=== PATIENT | female | born 2000 | race Two or more races ===

== ENCOUNTER 2023-04-22 11:18 | Emergency (ER) | payer MEDICAID ==
[~2023-04-22] VITALS: Ht 157.5 cm; Wt 80.0 kg
[2023-04-22 12:04] LABS: Urine Bacteria FEW /hpf (None Seen); Urine Blood Negative /uL (Negative); Urine Clarity Clear (Clear); Urine Color Colorless (Yellow); Urine Protein, UAD Negative (Negative); Urine Specific Gravity 1.013 (1.001-1.035); Urine Urobilinogen Normal (Negative); Urine WBC 186 /hpf (0 - 5); Urine pH 5.5 (5.0-8.0)
[2023-04-22 13:35] VITALS: BP 118/68; PULSE 90; RESP 16; TEMP 97.3; O2SAT 99
[2023-04-22] MEDS ORDERED: MAGNESIUM CITRATE SOLUTION 300 ML BTL PO ONE (15:00)
== END 2023-04-22 15:32 | disposition home or self-care (01) ==
LOC: ER 11:18
DX: K59.00 Constipation, unspecified (principal)
CPT/HCPCS: 74018; 81001; 81025

== ENCOUNTER 2024-04-25 11:59 | Emergency (ER) | payer MEDICAID ==
[~2024-04-25] VITALS: Ht 157.5 cm; Wt 66.3 kg
[2024-04-25] MEDS: cefTRIAXone SOD 1,000 MG VL IM ONE (14:12)
[2024-04-25] MEDS ORDERED: IBU600T PO (14:19)
[2024-04-25] MEDS ORDERED: AZIT-185 PO (14:19)
[2024-04-25 14:27] VITALS: BP 92/62; PULSE 79; RESP 18; TEMP 99; O2SAT 97
== END 2024-04-25 14:40 | disposition home or self-care (01) ==
LOC: ER 11:59
DX: J03.90 Acute tonsillitis, unspecified (principal); K59.00 Constipation, unspecified; M79.18 Myalgia, other site; Z79.899 Other long term (current) drug therapy
CPT/HCPCS: 96372; 99283; J0696

== ENCOUNTER 2024-07-20 16:19 | Emergency (ER) | payer MEDICAID ==
[~2024-07-20] VITALS: Ht 157.5 cm; Wt 52.8 kg
[~2024-07-20 16:19] MED LIST: AZIT-185 PO; IBU600T PO
[2024-07-20] MEDS ORDERED: METH4PAK PO (16:35)
[2024-07-20] MEDS ORDERED: AUG875T PO (16:35)
--- NOTE | 2024-07-20 16:36 | ED.PDOC ---
History of Present Illness HPI Comments 24-year-old female complaining of sinus congestion pressure x1 week. States over the last 2-3 days symptoms have gotten worse. Reports a history of lupus. 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 States she took three days of prednisone 10 mg with little relief. Patient reports continued frontal sinus headache. Nothing makes it better, nothing makes it worse. Chief Complaint: Flu like Time Seen by MD: 16:26 Primary Care Provider: JESSICA Valdovinos Notes: Nurses Notes Allergies: Coded Allergies: NO KNOWN ALLERGIES (Unverified , 04/22/23) Home Meds Active Scripts Ibuprofen Micronized (MOTRIN TABLET) 600 Mg Tb, 600 MG PO TID PRN, #30 TAB *Black box warning-NSAIDS can increase risk of AR & hypertension, GI irritation, ulceration, bleed, perferation. Do not use post cardiac surgery. Use short duration/lowest effective dose. Prov:AUGUSTIN QUIÑONEZ 04/25/24 Azithromycin (ZITHROMAX TABLET) 250 Mg Tb, 250 MG PO DAILY, #6 TAB Prov:AUGUSTIN QUIÑONEZ 04/25/24 Information Source: Patient Past Medical History PAST MEDICAL HISTORY: Denies Surgical History: Denies all surgeries MEDIA RELATIONS MANAGER History: No Pertinent MEDIA RELATIONS MANAGER History Family History Family History: Reviewed,noncontributory to illness Social History Smoker: Non-Smoker Alcohol: Denies ETOH Use Drugs: Denies Drug Use Lives In: Home Constitutional: denies: chills, diaphoresis, fatigue, fever, malaise, sweats, weakness, others EENTM: denies: blurred vision, double vision, ear bleeding, ear discharge, ear drainage, ear pain, ear ringing, eye pain, eye redness, hearing loss, mouth pain, mouth swelling, nasal discharge, nose bleeding, nose congestion, nose pain, photophobia, tearing, throat pain, throat swelling, voice changes, others Respiratory: denies: cough, hemoptysis, orthopnea, SOB at rest, shortness of breath, SOB with excertion, stridor, wheezing, others Cardiovascular: denies: chest pain, dizzy spells, diaphoresis, Dyspnea on exertion, edema, irregular heart beat, left arm pain, lightheadedness, palpitations, PND, syncope, others Gastrointestinal: denies: abdomen distended, abdominal pain, blood streaked bowels, constipated, diarrhea, dysphagia, difficulty swallowing, hematemesis, melena, nausea, poor appetite, poor fluid intake, rectal bleeding, rectal pain, vomiting, others Genitourinary: denies: abnormal vagina bleeding, burning, dyspareunia, dysuria, flank pain, frequency, hematuria, incontinence, pain, , vagina discharge, urgency, others Neurological: denies: dizziness, fainting, headache, left sided numbness, left sided weakness, numbness, paresthesia, pre-existing deficit, right sided numbness, right sided weakness, seizure, speech problems, tingling, tremors, weakness, others Musculoskeletal: denies: back pain, gout, joint pain, joint swelling, muscle pain, muscle stiffness, neck pain, others Integumetry: denies: bruises, change in color, change in hair/nails, dryness, laceration, lesions, lumps, rash, wounds, others Allergic/Immunocompromised: denies: Difficulty Healing, Frequent Infections, Hives, Itching, others Hematologic/Lymphatic: denies: anemia, blood clots, easy bleeding, easy bruising, swollen glands, others Endocrine: denies: excessive hunger, excessive sweating, excessive thirst, excessive urination, flushing, intolerance to cold, intolerance to heat, unexplained weight gain, unexplained weight loss, others Psychiatric: denies: anxiety, bipolar disorder, depression, hopeless, panic disorder, schizophrenia, sleepless, suicidal, others Physical Exam General Appearance: No Apparent Distress, Normal HEENT: Normal ENT Inspection, Pharynx Normal, Sinuses (Frontal and maxillary sinus tenderness), TMs Normal Neck: Full Range of Motion, Non-Tender, Normal, Normal Inspection Respiratory: Chest Non-Tender, Lungs Clear, No Accessory Muscle Use, No Respiratory Distress, Normal Breath Sounds Cardiovascular: No Edema, No JVD, No Murmur, No Gallop, Normal Peripheral Pulses, Regular Rate/Rhythm Breast Exam: Deferred Gastrointestinal: No Organomegaly, Non Tender, No Pulsatile Mass, Normal Bowel Sounds, Soft Genitalia: Deferred Pelvic: Deferred Rectal: Deferred Extremities: No calf tenderness, Normal capillary refill, Normal inspection, Normal range of motion, Non-tender, No pedal edema Musculoskeletal : Apperance: Normal Neurologic: Alert, form builder helper II-XII nml as Tested, No Motor Deficits, Normal Affect, Normal Mood, No Sensory Deficits Cerebellar Function: Normal Reflexes: Normal Skin: Dry, Normal Color, Warm Lymphatic: No Adenopathy Was a procedure done? Was a procedure done?: No Differential Dx Considerations may include: URI, influenza, COVID, strep throat, pharyngitis, pneumonia X-Ray, Labs, Meds, VS Comment Imaging: X-rays and CT scans were reviewed and interpreted by this provider, imaging shows no fractures and no pathological disease. Pending radiology review. Laboratory: Labs reviewed and interpreted by this provider. No significant abnormalities noted. Patient has prior medical visits reviewed. Med reconciliation performed Vital signs reviewed Time of 1ST Reevaluation: 16:35 Reevaluation 1ST: Improved Patient Education/Counseling: Diagnosis, Treatment, Need For Follow Up (Follow up with the PCP in the next 2-4 days. Follow up in the emergency department if symptoms worsen.) Family Education/Counseling: Diagnosis, No Family Present Departure 1 Departure Time of Disposition: 16:34 Impression: Primary Impression: Sinusitis Qualified Codes: J01.10 - Acute frontal sinusitis, unspecified Disposition: 01 HOME / SELF CARE / HOMELESS Condition: Fair e-Prescriptions Methylprednisolone (Medrol Dosepak) 4 Mg Efraín 4 MG PO UD, #21 TAB UAD Prov: UMER OLEARY 07/20/24 Amoxicillin & Pot Clavulanate (AUGMENTIN TABLET) 875 Mg Tb 875 MG PO BID for 7 Days, #14 TAB Prov: UMER OLEARY 07/20/24 Discharged With: Self Critical Care Note Critical Care Time?: No Stability Stability form required: No Heart Score Heart Score: Heart Score Response (Comments) Value History N/A 0 EKG N/A 0 Age N/A 0 Risk Factors N/A 0 Troponin N/A 0 Total 0 UMER OLEARY Jul 20, 2024 16:36
[2024-07-20 16:47] VITALS: BP 101/59; PULSE 104; RESP 17; TEMP 98.3; O2SAT 98
== END 2024-07-20 16:54 | disposition home or self-care (01) ==
LOC: ER 16:21
DX: J32.9 Chronic sinusitis, unspecified (principal); Z79.2 Long term (current) use of antibiotics; Z79.899 Other long term (current) drug therapy

== ENCOUNTER → 2025-03-04 | Emergency (ER) | payer MEDICARE, MEDICAID ==
[~2025-03-04] VITALS: Ht 157.5 cm; Wt 53.8 kg
[~2025-03-04] MED LIST changes: +AUG875T PO; +METH4PAK PO; +MORPHINE SULFATE 4 MG/ML SYR/VIAL IV ONE; +ONDANSETRON HCL 4 MG/2 ML VIAL IV ONE; +SODIUM CHLORIDE 0.9% 1,000 ML IV ONE
[2025-03-04 09:53] VITALS: BP 124/46; RESP 18; TEMP 98.1; O2SAT 95
[2025-03-04 10:01] VITALS: PULSE 59
--- NOTE | 2025-03-04 10:28 | ED.PDOC ---
HPI (NEURO) HPI Comments 24 y/o F, with PMHx of lupus presents to the ED for CC of s/p near syncopal episode. Patient states, she experienced a near syncopal episode this morning(03/04/25). Patient reports, to have had Flu-like symptoms including cough, nasal congestion, and headache x1week. Patient endorses taking her prescribed Hydroxychloroquine however, expresses no relief in symptoms. At this time patient denies dizziness, nausea, vomiting, or headache with aura. No other symptoms or modifying factors are present at this time Chief Complaint: Syncope Time Seen by MD: 10:30 Primary Care Provider: JESSICA Valdovinos Notes: Nurses Notes, Medications, Allergies Information Source: Patient Mode of Arrival: Ambulatory Severity: Moderate Headache Severity: Moderate Timing: Minutes Duration: Minutes Prehospital treatment: None Onset: At rest Circumstances: Spontaneous Symptoms: Faintness Before: Normal During: Awake After: Normal Mentation History of: None Modifying factors: Nothing Associated Signs and Symptoms: None Past Medical History Past Medical History (Other): lupus Surgical History: Denies all surgeries ELEMENTARY ESL TEACHER History: No Pertinent ELEMENTARY ESL TEACHER History Family History Family History: Reviewed,noncontributory to illness Social History Smoker: Non-Smoker Alcohol: Denies ETOH Use Drugs: Denies Drug Use Lives In: Home Constitutional: denies: chills, diaphoresis, fatigue, fever, malaise, sweats, weakness, others EENTM: denies: blurred vision, double vision, ear bleeding, ear discharge, ear drainage, ear pain, ear ringing, eye pain, eye redness, hearing loss, mouth pain, mouth swelling, nasal discharge, nose bleeding, nose congestion, nose pain, photophobia, tearing, throat pain, throat swelling, voice changes, others Respiratory: denies: cough, hemoptysis, orthopnea, SOB at rest, shortness of breath, SOB with excertion, stridor, wheezing, others Cardiovascular: denies: chest pain, dizzy spells, diaphoresis, Dyspnea on exertion, edema, irregular heart beat, left arm pain, lightheadedness, palpitations, PND, syncope, others Gastrointestinal: denies: abdomen distended, abdominal pain, blood streaked bowels, constipated, diarrhea, dysphagia, difficulty swallowing, hematemesis, melena, nausea, poor appetite, poor fluid intake, rectal bleeding, rectal pain, vomiting, others Genitourinary: denies: abnormal vagina bleeding, burning, dyspareunia, dysuria, flank pain, frequency, hematuria, incontinence, pain, , vagina discharge, urgency, others Neurological: reports: fainting; denies: dizziness, headache, left sided numbness, left sided weakness, numbness, paresthesia, pre-existing deficit, right sided numbness, right sided weakness, seizure, speech problems, tingling, tremors, weakness, others Musculoskeletal: denies: back pain, gout, joint pain, joint swelling, muscle pain, muscle stiffness, neck pain, others Integumetry: denies: bruises, change in color, change in hair/nails, dryness, laceration, lesions, lumps, rash, wounds, others Allergic/Immunocompromised: denies: Difficulty Healing, Frequent Infections, Hives, Itching, others Hematologic/Lymphatic: denies: anemia, blood clots, easy bleeding, easy bruising, swollen glands, others Endocrine: denies: excessive hunger, excessive sweating, excessive thirst, excessive urination, flushing, intolerance to cold, intolerance to heat, unexplained weight gain, unexplained weight loss, others Psychiatric: denies: anxiety, bipolar disorder, depression, hopeless, panic disorder, schizophrenia, sleepless, suicidal, others All Other Systems: Reviewed and Negative Physical Exam General Appearance: Moderate Distress HEENT: Normal ENT Inspection, Pharynx Normal, TMs Normal Neck: Full Range of Motion, Non-Tender, Normal, Normal Inspection Respiratory: Chest Non-Tender, Lungs Clear, No Accessory Muscle Use, No Respiratory Distress, Normal Breath Sounds Cardiovascular: No Edema, No JVD, No Murmur, No Gallop, Normal Peripheral Pulses, Regular Rate/Rhythm Breast Exam: Deferred Gastrointestinal: No Organomegaly, Non Tender, No Pulsatile Mass, Normal Bowel Sounds, Soft Genitalia: Deferred Pelvic: Deferred Rectal: Deferred Extremities: No calf tenderness, Normal capillary refill, Normal inspection, Normal range of motion, Non-tender, No pedal edema Musculoskeletal : Apperance: Normal Neurologic: Alert, virtualization consultant II-XII nml as Tested, No Motor Deficits, Normal Affect, Normal Mood, No Sensory Deficits Cerebellar Function: Normal Reflexes: Normal Skin: Dry, Normal Color, Warm Peripheral Pulses: 3+ Radial (R), 3+ Radial (L) Lymphatic: No Adenopathy Was a procedure done? Was a procedure done?: No Differential Diagnosis (SZ) Seizure: Psychogenic Seizure, Closed Head Injury, CVA/TIA, Syncope X-Ray, Labs, Meds, VS Vital Signs Date Time Temp Pulse Resp B/P (MAP) Pulse Ox O2 Delivery O2 Flow Rate FiO2 03/04/25 10:01 59 03/04/25 09:53 98.1 72 18 124/46 95 98.1 Lab Test 03/04/25 11:03 Range/Units White Blood Count 5.6 4.4-10.8 10^3/uL Red Blood Count 4.46 4.0-5.20 10^6/uL Hemoglobin 14.3 12.2-16.2 g/dL Hematocrit 42.6 36.0-46.0 % Mean Corpuscular Volume 95.5 80.0-100.0 fL Mean Corpuscular Hemoglobin 32.2 H 28.0-32.0 pg Mean Corpuscular Hemoglobin Concent 33.7 32.0-36.0 g/dL Red Cell Distribution Width 13.3 11.8-14.3 % Platelet Count 254 140-450 10^3/uL Mean Platelet Volume 7.8 6.9-10.8 fL Neutrophils (%) (Auto) 74.3 37.0-80.0 % Lymphocytes (%) (Auto) 19.6 10.0-50.0 % Monocytes (%) (Auto) 5.8 0.0-12.0 % Eosinophils (%) (Auto) 0.1 0.0-7.0 % Basophils (%) (Auto) 0.2 0.0-2.0 % Neutrophils # (Auto) 4.1 1.6-8.6 10 ^3/uL Lymphocytes # (Auto) 1.1 0.4-5.4 10 ^3/uL Monocytes # (Auto) 0.3 0-1.3 10 ^3/uL Eosinophils # (Auto) 0 0-0.8 10 ^3/uL Basophils # (Auto) 0 0-0.2 10 ^3/uL Nucleated Red Blood Cells 0.1 % Sodium Level 141 136-145 mmol/L Potassium Level 4.3 3.5-5.1 mmol/L Chloride Level 106 98-107 mmol/L Carbon Dioxide Level 27 20-31 mmol/L Anion Gap 8 5-15 Blood Urea Nitrogen 10 9-23 mg/dL Creatinine 0.58 0.550-1.02 mg/dL Glomerular Filtration Rate Calc 130 >90 mL/min BUN/Creatinine Ratio 17.2 10.0-20.0 Serum Glucose 101 74-106 mg/dL Calcium Level 9.8 8.7-10.4 mg/dL Patient alert. Vitals stable. Frequent syncopal episodes. History of lupus. WBC within normal limits. Hemoglobin within normal limits. Establish intravenous access. Was given fluids. Was given morphine. Was given Zofran. CT of the head. Possibly need MRI. Explained to the patient. Continue to monitor. Time of 1ST Reevaluation: 11:00 Reevaluation 1ST: Unchanged Patient Education/Counseling: Diagnosis, Treatment Family Education/Counseling: No Family Present Departure 1 Departure Time of Disposition: 12:29 Impression: Primary Impression: Syncope Qualified Codes: R55 - Syncope and collapse Additional Impression: Autonomic disorder Disposition: ADMITTED INPATIENT Admit to: Med Surg Condition: Guarded Critical Care Note Critical Care Time?: No Stability Stability form required: No Heart Score Heart Score: Heart Score Response (Comments) Value History N/A 0 EKG N/A 0 Age N/A 0 Risk Factors N/A 0 Troponin N/A 0 Total 0 I personally scribed for FADUMO ARAIZA MD ([email or web address]) on 03/04/25 at 10:28. Electronically submitted by Silvina Fonseca ([email or web address]). I personally scribed for FADUMO ARAIZA MD ([email or web address]) on 03/04/25 at 10:51. Electronically submitted by Silvina Fonseca ([email or web address]). FADUMO ARAIZA MD Mar 04, 2025 10:28
[2025-03-04 11:22] LABS: Hematocrit 42.6 % (36.0-46.0); Hemoglobin 14.3 g/dL (12.2-16.2); Mean Corpuscular Hemoglobin 32.2 pg (28.0-32.0); Mean Corpuscular Volume 95.5 fL (80.0-100.0); Nucleated Red Blood Cells % 0.1 %
[2025-03-04 11:30] LABS: Chloride 106 mmol/L (98-107); Potassium 4.3 mmol/L (3.5-5.1); Sodium 141 mmol/L (136-145)
[2025-03-04 11:31] LABS: Anion Gap 8 (5-15); Carbon Dioxide 27 mmol/L (20-31)
[2025-03-04 11:32] LABS: Calcium 9.8 mg/dL (8.7-10.4)
[2025-03-04 11:36] LABS: Glucose 101 mg/dL (74-106)
[2025-03-04 11:37] LABS: BUN/Creatinine Ratio 17.2 (10.0-20.0); Blood Urea Nitrogen 10 mg/dL (9-23)
--- NOTE | 2025-03-08 07:37 | ECG ---
[facility] Test Date: 2025-03-04 Test Time: 10:01:48 Pat Name: ROSELYN GUZMÁN Department: ED Room: Gender: F Art Education Professor: MYRANDA MORGANB: 2000 Requested By: FADUMO ARAIZA Order Number: [id number] Reading MD: Bishop Jiang Measurements Intervals Ary Rate: 59 P: 84 CT: 128 QRS: -54 QRSD: 97 T: 86 QT: 501 QTc: 497 Interpretive Statements Sinus rhythm Left axis deviation Low voltage, precordial leads RSR' in V1 or V2, probably normal variant Borderline T wave abnormalities Prolonged QT interval Electronically Signed On 03-08-2025 18:05:24 PDT by Bishop Jiang Please click the below link to view image of tracing.
== END | disposition left against medical advice (07) ==
LOC: ER 09:52
DX: G90.9 Disorder of the autonomic nervous system, unspecified (principal); R55 Syncope and collapse; R50.9 Fever, unspecified; R09.81 Nasal congestion
CPT/HCPCS: 36415; 80048; 82947; 84484; 85025; 93005